=== PATIENT | female | born 1980 | race Two or more races ===

== ENCOUNTER 2024-10-13 20:23 | Emergency (ER) | payer MEDICAID, OTHER ==
[~2024-10-13] VITALS: Ht 144.8 cm; Wt 52.3 kg
[2024-10-13 20:40] VITALS: TEMP 98.8
[2024-10-13 21:07] LABS: Urine Bacteria None Seen /hpf (None Seen)
--- NOTE | 2024-10-13 21:28 | ED.PDOC ---
History of Present Illness HPI Comments Ms. Herrera, a 43-year-old female with past medical history significant for nonobstructive renal stone, , c sections x2, cholecystectomy, and bilateral salpingectomy came with urgency, frequency, new onset of incontinence of urine associated with chills. Mainly she is concerned about left loin to groin int ermittent sharp pain that reminds her of previous nonobstructive renal stone that was treated conservatively without any urology intervention. Patient also has white vaginal discharge, intermittent spotting out of menstruation for past 2-3 weeks which is worsening and patient associates with the last sexual encounter. Patient has regular periods, LMP 10/04/2024, 28-30 days of regular cycle, 3-4 days duration, sexually active with 1 male partner, last sexual activity 09/17/2024. Patient denies any sick contact, diarrhea, constipation, hematochezia, other GI or symptoms, denies fever or any previous history of known sexually transmitted disease. She recently moved from [facility] and yet to establish care with a local PCP. Past medical history: As above Past surgical history: As above Gynecological history: As above, LMP 10/04/2024 Family history: Noncontributory to the ED visit. Sexual history: Presumably sexually active with 1 male partner. History of allergy: Denies Medication: No regular scheduled medication, she takes [id number] multivitamin and multimodal. Social history: Lives at home with family kids brother and sister. Denies lifetime use of tobacco/nicotine, any other recreational drugs or marijuana, occasional social alcohol use. Chief Complaint: Flank Pain Time Seen by MD: 20:27 Primary Care Provider: Yet to establish Reviewed Notes: Nurses Notes, Medications, Allergies Allergies: Coded Allergies: Cephalexin (Verified Allergy, Unknown, 10/13/24) Information Source: Patient Mode of Arrival: Ambulatory Severity: Mild Timing: Days Duration: Since onset, Intermittent Prehospital treatment: None Past Medical History Past Medical History (Other): As per HPI Surgical History (Other): As per HPI Family History Family History (Other): As per HPI Social History Smoker: Non-Smoker (He) Alcohol: Occasionally Drugs: Denies Drug Use Lives In: Home Constitutional: reports: chills; denies: diaphoresis, fatigue, fever, malaise, sweats, weakness, others EENTM: denies: blurred vision, double vision, ear bleeding, ear discharge, ear drainage, ear pain, ear ringing, eye pain, eye redness, hearing loss, mouth pain, mouth swelling, nasal discharge, nose bleeding, nose congestion, nose pain, photophobia, tearing, throat pain, throat swelling, voice changes, others Respiratory: denies: cough, hemoptysis, orthopnea, SOB at rest, shortness of breath, SOB with excertion, stridor, wheezing, others Cardiovascular: denies: chest pain, dizzy spells, diaphoresis, Dyspnea on exertion, edema, irregular heart beat, left arm pain, lightheadedness, palpitations, PND, syncope, others Gastrointestinal: reports: abdominal pain; denies: abdomen distended, blood streaked bowels, constipated, diarrhea, dysphagia, difficulty swallowing, hematemesis, melena, nausea, poor appetite, poor fluid intake, rectal bleeding, rectal pain, vomiting, others Genitourinary: reports: abnormal vagina bleeding, flank pain, frequency, incontinence, pain, vagina discharge, urgency; denies: burning, dyspareunia, dysuria, hematuria, , others Neurological: denies: dizziness, fainting, headache, left sided numbness, left sided weakness, numbness, paresthesia, pre-existing deficit, right sided numbness, right sided weakness, seizure, speech problems, tingling, tremors, weakness, others Musculoskeletal: denies: back pain, gout, joint pain, joint swelling, muscle pain, muscle stiffness, neck pain, others Integumetry: denies: bruises, change in color, change in hair/nails, dryness, laceration, lesions, lumps, rash, wounds, others Allergic/Immunocompromised: denies: Difficulty Healing, Frequent Infections, Hives, Itching, others Hematologic/Lymphatic: denies: anemia, blood clots, easy bleeding, easy bruising, swollen glands, others Endocrine: denies: excessive hunger, excessive sweating, excessive thirst, excessive urination, flushing, intolerance to cold, intolerance to heat, unexplained weight gain, unexplained weight loss, others Psychiatric: denies: anxiety, bipolar disorder, depression, hopeless, panic d isorder, schizophrenia, sleepless, suicidal, others Physical Exam General Appearance: No Apparent Distress HEENT: Normal ENT Inspection (Grossly normal, no icterus, no pallor, oral mucosa while moist) Neck: Full Range of Motion, Normal Inspection Respiratory: Lungs Clear, No Accessory Muscle Use, No Respiratory Distress, Normal Breath Sounds Cardiovascular: No Edema, No Murmur, No Gallop, Normal Peripheral Pulses, Regular Rate/Rhythm Breast Exam: Deferred Gastrointestinal: No Organomegaly, Non Tender, No Pulsatile Mass, Normal Bowel Sounds, Other (Deep palpation of suprapubic area causes mild discomfort) Genitalia: Deferred (She was in the public area in the [facility], when available a private space with a female attending planning to re-evaluate the patient) Pelvic: Deferred (Same as above) Rectal: Deferred (Same as above) Extremities: No calf tenderness, Normal capillary refill, Normal inspection, Normal range of motion, No pedal edema Neurologic: No Motor Deficits (Grossly no motor deficits, patient is ambulatory with maintaining gets.), Normal Affect, Normal Mood Cerebellar Function: Normal (Grossly normal) Reflexes: NOT DONE Skin: NOT DONE Lymphatic: NOT DONE Differential Dx Considerations may include: UTI, renal colic, sexually transmitted disease, pelvic inflammatory disease, possible renal stone, pyelonephritis X-Ray, Labs, Meds, VS Vital Signs Date Time Temp Pulse Resp B/P (MAP) Pulse Ox O2 Delivery O2 Flow Rate FiO2 10/13/24 23:54 70 16 122/68 (86) 97 10/13/24 20:40 98.8 73 18 142/87 (105) 96 98.8 Lab Test 10/13/24 21:15 10/13/24 20:20 Range/Units White Blood Count 4.1 L 4.4-10.8 10^3/uL Red Blood Count 4.37 4.0-5.20 10^6/uL Hemoglobin 12.7 12.2-16.2 g/dL Hematocrit 38.2 36.0-46.0 % Mean Corpuscular Volume 87.3 80.0-100.0 fL Mean Corpuscular Hemoglobin 29.0 28.0-32.0 pg Mean Corpuscular Hemoglobin Concent 33.3 32.0-36.0 g/dL Red Cell Distribution Width 13.8 11.8-14.3 % Platelet Count 241 140-450 10^3/uL Mean Platelet Volume 8.4 6.9-10.8 fL Neutrophils (%) (Auto) 38.8 37.0-80.0 % Lymphocytes (%) (Auto) 41.9 10.0-50.0 % Monocytes (%) (Auto) 11.2 0.0-12.0 % Eosinophils (%) (Auto) 7.1 H 0.0-7.0 % Basophils (%) (Auto) 1.0 0.0-2.0 % Neutrophils # (Auto) 1.6 1.6-8.6 10 ^3/uL Lymphocytes # (Auto) 1.7 0.4-5.4 10 ^3/uL Monocytes # (Auto) 0.5 0-1.3 10 ^3/uL Eosinophils # (Auto) 0.3 0-0.8 10 ^3/uL Basophils # (Auto) 0 0-0.2 10 ^3/uL Nucleated Red Blood Cells 0.1 % Sodium Level 139 136-145 mmol/L Potassium Level 3.7 3.5-5.1 mmol/L Chloride Level 103 98-107 mmol/L Carbon Dioxide Level 29 20-31 mmol/L Anion Gap 7 5-15 Blood Urea Nitrogen 9 9-23 mg/dL Creatinine 0.65 0.550-1.02 mg/dL Glomerular Filtration Rate Calc 112 >90 mL/min BUN/Creatinine Ratio 13.8 10.0-20.0 Serum Glucose 90 74-106 mg/dL Calcium Level 9.5 8.7-10.4 mg/dL Total Bilirubin 0.5 0.2-1.0 mg/dL Aspartate Amino Transferase (AST) 13 13-40 U/L Alanine Aminotransferase (ALT) 15 7-40 U/L Alkaline Phosphatase 62 46-116 U/L Total Protein 7.0 5.7-8.2 g/dL Albumin 4.3 3.2-4.8 g/dL Lipase 40 12-53 U/L Urine Color Colorless Yellow Urine Clarity Clear Clear Urine pH 6.5 5.0-9.0 Urine Specific [place] 1.005 1.001-1.035 Urine Protein Negative Negative Urine Ketones Negative Negative Urine Blood Negative Negative /uL Urine Nitrite Negative Negative Urine Bilirubin Negative Negative Urine Urobilinogen Normal Negative mg/dL Urine Leukocyte Esterase Negative Negative /uL Urine RBC 1 0 - 4 /hpf Urine Microscopic WBC 1 0-5 /HPF Urine Squamous Epithelial Cells Few <5 /hpf Urine Bacteria None seen None Seen /hpf Urine Glucose Normal Normal mg/dL Chlamydia trachomatis (ALONDRA) Pending Neisseria gonorrhoeae (ALONDRA) Pending Current Medications Medications (Trade) Dose Ordered Sig/Lien Route Start Time Stop Time Status Last Admin Ketorolac Tromethamine (Toradol Injection) 30 mg ONCE ONCE IM 10/13/24 22:30 10/13/24 22:31 DC 10/13/24 22:15 Time of 1ST Reevaluation: 21:23 Reevaluation 1ST: Unchanged Time of 2ND Reevaluation: 22:08 Reevaluation 2ND: Unchanged (cbc unremarkable, afebrile, hemodynamically stable, US renal -ve for obstruction, UA ruled out UTI, microscopic hematuria / renal stone. STD panel pending with CMP and lipase. Discussed with Dr. Will. ) Consultation: PCP (Advised to establish care in the [facility] as she has permanently moved to the area.) Patient Education/Counseling: Diagnosis, Treatment, Prognosis, Need For Follow Up Family Education/Counseling: No Family Present Sepsis Sepsis Reasesment Focused Exam Sepsis focused exam: focus exam completed (Not enough labs or information available to determine SIRS at this point. Labs are pending.), time: Departure 1 Departure Time of Disposition: 22:10 Impression: Primary Impression: STD (female) Additional Impressions: STD exposure Abdominal pain Qualified Codes: R10.32 - Left lower quadrant pain Disposition: 30 STILL A PATIENT Condition: Good Comments Attestation: I was present with the resident during the visit. I discussed the case with the resident and agree with the note as documented by the resident. DONNA WILL MD Critical Care Note Critical Care Time?: No Stability Stability form required: No Heart Score Heart Score: Heart Score Response (Comments) Value History N/A 0 EKG N/A 0 Age N/A 0 Risk Factors N/A 0 Troponin N/A 0 Total 0 NUZHAT ROSA RESIDENT Oct 13, 2024 21:27 DONNA WILL MD Oct 14, 2024 01:19
[2024-10-13 21:29] LABS: Urine Blood Negative /uL (Negative); Urine Clarity Clear (Clear); Urine Color Colorless (Yellow); Urine Protein, UAD Negative (Negative); Urine Specific Gravity 1.005 (1.001-1.035); Urine Squamous Epithelial Cell FEW /hpf (<5); Urine Urobilinogen Normal (Negative); Urine WBC 1 /HPF (0-5); Urine pH 6.5 (5.0-9.0)
--- NOTE | 2024-10-13 21:43 | DVH ---
INDICATION: b/l ureter, bladder and renal US to rule out obstruction. TECHNIQUE: Multiple real-time sonographic images of the kidneys and bladder were obtained. COMPARISON: None FINDINGS: The right kidney measures 9.6 cm in length, which is normal in size. There is normal echoge nicity of the right kidney. No hydronephrosis. The left kidney measures 10.3 cm in length, which is normal in size. There is normal echogenicity of the left kidney. No hydronephrosis. No large intraluminal masses are seen in the bladder. Prior to voiding the bladder volume measures vo lume 10.54 cc. Bladder wall measures 3.2 mm. IMPRESSION: 1. Right kidney measures 9.6 cm 2. Left kidney measures 10.3 cm 3. Bladder contains 10.54 cm of urine patient has no urge to void
[2024-10-13 21:46] LABS: Basophils # (auto) 0 10 ^3/uL (0-0.2); Eosinophils # (auto) 0.3 10 ^3/uL (0-0.8); Eosinophils % (auto) 7.1 % (0.0-7.0); Hematocrit 38.2 % (36.0-46.0); Hemoglobin 12.7 g/dL (12.2-16.2); Lymphocytes # (auto) 1.7 10 ^3/uL (0.4-5.4); Lymphocytes % (auto) 41.9 % (10.0-50.0); Mean Corpuscular Hgb Conc. 33.3 g/dL (32.0-36.0); Mean Corpuscular Volume 87.3 fL (80.0-100.0); Monocytes # (auto) 0.5 10 ^3/uL (0-1.3); Monocytes % (auto) 11.2 % (0.0-12.0); Neutrophils # (auto) 1.6 10 ^3/uL (1.6-8.6); Neutrophils % (auto) 38.8 % (37.0-80.0); Nucleated Red Blood Cells % 0.1 %; Platelet Count (auto) 241 10^3/uL (140-450); Red Blood Cells 4.37 10^6/uL (4.0-5.20); Red Cell Distribution Width 13.8 % (11.8-14.3); White Blood Cell 4.1 10^3/uL (4.4-10.8)
[2024-10-13 22:03] LABS: Alanine Aminotransferase 15 U/L (7-40); Alkaline Phosphatase 62 U/L (46-116); Anion Gap 7 (5-15); Aspartate Aminotransferase 13 U/L (13-40); BUN/Creatinine Ratio 13.8 (10.0-20.0); Blood Urea Nitrogen 9 mg/dL (9-23); Calcium 9.5 mg/dL (8.7-10.4); Carbon Dioxide 29 mmol/L (20-31); Chloride 103 mmol/L (98-107); Glucose 90 mg/dL (74-106); Lipase 40 U/L (12-53); Potassium 3.7 mmol/L (3.5-5.1); Sodium 139 mmol/L (136-145)
[2024-10-13 22:04] LABS: Albumin 4.3 g/dL (3.2-4.8); Bilirubin, Total 0.5 mg/dL (0.2-1.0)
[2024-10-13] MEDS: KETOROLAC TROMETH 30 MG/ML 1ML VIAL IM ONE (22:15)
[2024-10-13 23:54] VITALS: BP 122/68; PULSE 70; RESP 16; O2SAT 97
[2024-10-16 01:06] LABS: Chlamydia Trachomatis, NAA Negative (Negative); Neisseria gonorrhoeae, NAA Negative (Negative)
== END 2024-10-14 00:02 | disposition home or self-care (01) ==
LOC: ER 20:23
DX: R10.32 Left lower quadrant pain (principal); Z20.2 Contact with and (suspected) exposure to infections with a predominantly sexual mode of transmission; Z88.1 Allergy status to other antibiotic agents
CPT/HCPCS: 36415; 76775; 80053; 81001; 83690; 85025; 87491; 87591; 96372; 99285; J1885

== ENCOUNTER 2025-02-22 07:41 | Emergency (ER) | payer MEDICAID, OTHER ==
[~2025-02-22] VITALS: Ht 144.8 cm; Wt 55.8 kg
[2025-02-22 07:42] VITALS: BP 155/73; PULSE 83; RESP 18; TEMP 98.2; O2SAT 98
--- NOTE | 2025-02-22 08:49 | ED.PDOC ---
Eye-HPI HPI Comments 44 year old female presents to the emergency department with a chief complaint of sore throat onset 5 days. Patient began experiencing sore throat 5 days ago, was seen at [facility] 4 days ago was treated with Penicillin IM, was prescribed z-pac. Patient states she has been compliant with prescribed medication, has not noticed an improvement. No other symptoms or modifying factors present at this time. Denies chest pain shortness of breath Denies inability to move neck, history of meningitis Denies fevers chills night sweats Denies loss of appetite, unintentional weight loss over the past 3 months Denies voice changes Denies history of asthma or seasonal allergies Chief Complaint: Flu like Time Seen by MD: 08:25 Primary Care Provider: Yet to establish Reviewed Notes: Nurses Notes, Medications, Allergies Allergies: Coded Allergies: Acetaminophen (Verified Allergy, Unknown, 02/22/25) Cephalexin (Verified Allergy, Unknown, 10/13/24) Information Source: Patient Mode of Arrival: Ambulatory Timing: Days Duration: Since onset Prehospital treatment: Other (Z-PAC) Quality: Pain Eye Location: Lower Lids: Normal Conjunctiva: Normal Cornea: Normal Pupils: Normal EOM: Normal Fundus: Normal Slit lamp exam: Normal Anterior chamber: Normal Sinuses: Normal Associated signs and symptoms: Sore Throat Past Medical History PAST MEDICAL HISTORY: Denies Surgical History: Denies all surgeries RECREATIONAL THERAPIST History: No Pertinent RECREATIONAL THERAPIST History Family History Family History: Reviewed,noncontributory to illness, No family hx of Cancer, No family hx of DM, No family hx of Heart colt, No family hx of HTN, No family hx ofKidney colt, No family hx of Liver colt, No family hx of Lung colt, No family hx of Stroke Family History (Other): As per HPI Social History Smoker: Non-Smoker Alcohol: Occasionally Drugs: Denies Drug Use Lives In: Home All Other Systems: Reviewed and Negative ( PER HPI) Physical Exam General Appearance: No Apparent Distress, Normal HEENT: Normal ENT Inspection, Pharynx Normal, TMs Normal Neck: Full Range of Motion, Non-Tender, Normal, Normal Inspection Respiratory: Chest Non-Tender, Lungs Clear, No Accessory Muscle Use, No Respiratory Distress, Normal Breath Sounds Cardiovascular: No Edema, No JVD, No Murmur, No Gallop, Normal Peripheral Pulses, Regular Rate/Rhythm Breast Exam: Deferred Gastrointestinal: No Organomegaly, Non Tender, No Pulsatile Mass, Normal Bowel Sounds, Soft Genitalia: Deferred Pelvic: Deferred Rectal: Deferred Extremities: No calf tenderness, Normal capillary refill, Normal inspection, Normal range of motion, Non-tender, No pedal edema Musculoskeletal : Apperance: Normal Neurologic: Alert, rehabilitation therapy aide II-XII nml as Tested, No Motor Deficits, Normal Affect, Normal Mood, No Sensory Deficits Cerebellar Function: Normal Reflexes: Normal Skin: Dry, Normal Color, Warm Lymphatic: No Adenopathy Was a procedure done? Was a procedure done?: No EENT DIFF Eye: Other Sore Throat: Streptococcal, Viral Pharyngitis, URI X-Ray, Labs, Meds, VS Vital Signs Date Time Temp Pulse Resp B/P (MAP) Pulse Ox O2 Delivery O2 Flow Rate FiO2 02/22/25 07:42 98.2 83 18 155/73 98 98.2 X-Ray, Labs, Meds, VS Comment 44 year old female presents to the emergency department with a chief complaint of sore throat onset 5 days. Patient's son tested positive for strep throat on todays visit. Pt on appropriate therapy. Supportive tx discussed Patient arrives alert and oriented, ABC's intact, afebrile, vital signs stable, saturating well in room air Additional MDM Review of External, Non-ED records: External records reviewed. Discussion with independent historian (EMS, family) history obtained from the patient/parents (if applicable) at bedside Chronic conditions affecting care: None Social determinants of health affecting care: None I considered escalation of care to admission for this patient, however given the reassuring workup, the patient is safe for outpatient management. Patient is stable for discharge at this time. External notes reviewed. Test results and diagnostic imaging interpreted. All diagnostic findings, discharge care, education and instructions provided Follow-up with PCP in 2 to 3 days Patient verbalized understanding and agreed to treatment plan Vital signs stable, afebrile, no acute distress noted Patient ambulatory with strong steady gait Advised to return precautions for any new or worsening symptoms, return to ER immediately for re-evaluation Patient is aware that the purpose of this visit was for an acute medical emergency requiring emergent stabilization. Chronic conditions, including malignancies have not been ruled out. Patient is instructed to follow up with P CP as directed and discharge instructions for continued care and workup. If unable to arrange follow-up, patient is to return to the emergency department for reassessment. Patient (parent or legal guardian if applicable) was given verbal and written discharge instructions and acknowledges understanding. Time of 1ST Reevaluation: 08:55 Reevaluation 1ST: Improved Patient Education/Counseling: Diagnosis, Treatment Family Education/Counseling: Diagnosis, Treatment SEPSIS Sepsis Screen Date sepsis recognized/suspect: Feb 22, 2025 Time Sepsis recognized/suspect: 0742 Recent Procedure: No On Antibiotic Therapy: No Respiratory Rate >20: No Heart Rate >90: No Temp<36 C (96.8 F) or >38.3 C: No SBP <90 or MAP <65 mmHG: No New Acute Mental Status Change: No Is the patient on CPAP, BIPAP,: No Vital Signs Date Time Temp Pulse Resp B/P (MAP) Pulse Ox O2 Delivery O2 Flow Rate FiO2 02/22/25 07:42 98.2 83 18 155/73 98 98.2 Departure 1 Departure Time of Disposition: 09:23 Impression: Primary Impression: Strep pharyngitis Additional Impression: COVID Disposition: 01 HOME / SELF CARE / HOMELESS Condition: Stable Discharged With: Self Critical Care Note Critical Care Time?: No Stability Stability form required: No Heart Score Heart Score: Heart Score Response (Comments) Value History N/A 0 EKG N/A 0 Age N/A 0 Risk Factors N/A 0 Troponin N/A 0 Total 0 I personally scribed for ZAFAR MCMAHON NP ([email or web address]) on 02/22/25 at 08:49. Electronically submitted by Jane Barakat ([email or web address]). I personally scribed for ZAFAR MCMAHON NP ([email or web address]) on 02/22/25 at 09:25. Electronically submitted by Jane Barakat ([email or web address]). ZAFAR MCMAHON NP Feb 22, 2025 08:49
== END 2025-02-22 09:32 | disposition home or self-care (01) ==
LOC: ER 07:41
DX: U07.1 COVID-19 (principal); J02.0 Streptococcal pharyngitis; F10.90 Alcohol use, unspecified, uncomplicated; Z88.1 Allergy status to other antibiotic agents; Y90.9 Presence of alcohol in blood, level not specified